=== PATIENT | female | born 1960 | race Caucasian/White ===

== ENCOUNTER 2019-10-01 10:54 | Inpatient (IN) | payer BC ==
[~2019-10-01] VITALS: Ht 157.5 cm; Wt 56.1 kg
--- NOTE | 2019-10-01 11:50 | NUR ---
URINE COLLECTED AND TUBED TO LAB.
[2019-10-01 11:55] LABS: BASOPHILS 0.1 % (0-2); EOSINOPHILS 0.1 % (0-7); HEMATOCRIT 32.8 % (36.0-48.0); HEMOGLOBIN 10.6 g/dL (12-16); IMMATURE GRANULOCYTES 0.8 % (0-5); LYMPHOCYTES 6.5 % (15-50); MCH 30.2 pg (26.0-34.0); MCHC 32.3 g/dL (31.0-37.0); MCV 93.4 fL (80.0-100.0); MEAN PLATELET VOLUME 11.1 fL (7.4-10.4); MONOCYTES 8.3 % (2-11); NEUTROPHILS 84.2 % (40-80); PLATELET COUNT 236 10x3/uL (130-400); RBC 3.51 10x6/uL (4.00-5.40); RDW 15.3 % (11.5-14.5); WBC 14.1 10x3/uL (4.8-10.8)
[2019-10-01 12:05] LABS: APTT 33.4 SECONDS (22.8-39.4); INR 1.15 (0.85-1.17); PROTIME 14.7 SECONDS (11.6-15.0)
[2019-10-01 12:26] LABS: ALBUMIN 2.4 g/dL (3.4-5.0); ALKALINE PHOSPHATASE 195 U/L (30-120); ALT (SGPT) 25 U/L (10-68); AMYLASE - SERUM 23 U/L (25-115); BILIRUBIN - TOTAL 0.52 mg/dL (0.2-1.3); CALC OSMOLALITY 275 mosm/kg (275-300); CARBON DIOXIDE 12.1 mmol/L (21.0-32.0); CHLORIDE - SERUM 105 mmol/L (98-107); CKMB 4.1 U/L (0.0-3.6); CREATINE KINASE 54 UL (21-215); CREATININE - SERUM 2.6 mg/dL (0.6-1.3); FERRITIN 197 ng/mL (3-244); GLUCOSE 120 mg/dL (74-106); LIPASE 84 U/L (73-393); PROTEIN - SERUM 6.9 g/dL (6.4-8.2); SODIUM 135 mmol/L (136-145); UREA NITROGEN 27 mg/dL (7-18); eGFR NON AFRICAN AMERICAN 20 mL/min (90-120)
[2019-10-01 12:30] VITALS: BP 108/62
[2019-10-01 12:34] LABS: POTASSIUM - SERUM 3.1 mmol/L (3.5-5.1)
[2019-10-01 12:35] LABS: TROPONIN-I 0.574 ng/mL (0.000-0.060)
--- NOTE | 2019-10-01 12:37 | NUR ---
CRITICALLAB: MARGARET FOSTER FROM [facility], LAB TROPONIN [phone]
[2019-10-01 12:45] LABS: C-REACTIVE PROTEIN 60.2 mg/dL (0.0-0.9)
[2019-10-01 12:54] LABS: BILIRUBIN NEGATIVE (NEGATIVE); GLUCOSE NEGATIVE (NEGATIVE); KETONE NEGATIVE (NEGATIVE); NITRITE NEGATIVE (NEGATIVE); SPECIFIC GRAVITY 1.015 (1.005-1.020); UROBILINOGEN NORMAL (NORMAL)
[2019-10-01 12:55] LABS: RED CELLS - URINE 0-5 /hpf (0-5)
[2019-10-01 12:56] LABS: BACTERIA FEW /hpf (NEGATIVE); EPITHELIAL CELLS 0-5 /hpf (0-5)
[2019-10-01 13:30] VITALS: BP 113/92
[2019-10-01 15:06] VITALS: BP 147/78
[2019-10-01 16:08] VITALS: BP 124/75
--- NOTE | 2019-10-01 17:08 | NUR ---
PT ARRIVED TO FLOOR VIA WHEELCHAIR. PT ON 2L O2 SOB. VSS AT THIS TIME. NO S/S OF DISTRESS. BED LOW CALL LIGHT WITHIN REACH. WILL CONTINUE TO MONITOR.
[2019-10-01 17:19] LABS: % SATURATION 5 % (15-55); IRON 11 ug/dl (35-150); TOTAL IRON BIND CAPACITY 215 ug/dl (260-445); UNSAT IRON BIND CAPACITY 204 ug/dl (150-375)
[2019-10-01] MEDS ORDERED: BUPROPION HCL100 M1 PO (17:23)
[2019-10-01] MEDS ORDERED: MOBIC7.5 MG PO (17:24)
[2019-10-01] MEDS ORDERED: COZAAR50 MG PO (17:26)
[2019-10-01] MEDS ORDERED: TRAZODONE HCL150 MG PO (17:27)
[2019-10-01] MEDS ORDERED: CRESTOR40 MG PO (17:27)
[2019-10-01] MEDS ORDERED: ULTRAM50 MG PO (17:28)
[2019-10-01] MEDS ORDERED: CYMBALTA30 MG PO (17:29)
[2019-10-01 19:51] LABS: CKMB 11.9 U/L (0.0-3.6); CREATINE KINASE 84 UL (21-215)
[2019-10-01 19:54] LABS: TROPONIN-I 0.354 ng/mL (0.000-0.060)
[2019-10-01 21:24] VITALS: BP 114/60
[2019-10-01 21:25] VITALS: BP 116/60; BMI 21.4
[2019-10-02 00:40] LABS: CKMB 18.5 U/L (0.0-3.6); CREATINE KINASE 110 UL (21-215)
[2019-10-02 00:42] LABS: TROPONIN-I 0.277 ng/mL (0.000-0.060)
[2019-10-02 04:14] LABS: BASOPHILS 0 % (0-2); EOSINOPHILS 0 % (0-7); HEMATOCRIT 30.4 % (36.0-48.0); HEMOGLOBIN 10.1 g/dL (12-16); IMMATURE GRANULOCYTES 0.3 % (0-5); LYMPHOCYTES 5.6 % (15-50); MCH 30.5 pg (26.0-34.0); MCHC 33.2 g/dL (31.0-37.0); MCV 91.8 fL (80.0-100.0); MEAN PLATELET VOLUME 10.6 fL (7.4-10.4); MONOCYTES 6.9 % (2-11); NEUTROPHILS 87.2 % (40-80); PLATELET COUNT 220 10x3/uL (130-400); RBC 3.31 10x6/uL (4.00-5.40); WBC 11.9 10x3/uL (4.8-10.8)
[2019-10-02 04:58] LABS: ALBUMIN 2.3 g/dL (3.4-5.0); ALKALINE PHOSPHATASE 168 U/L (30-120); ALT (SGPT) 26 U/L (10-68); BILIRUBIN - TOTAL 0.37 mg/dL (0.2-1.3); CALCIUM 9.2 mg/dL (8.5-10.1); CHLORIDE - SERUM 108 mmol/L (98-107); CKMB 18.6 U/L (0.0-3.6); CREATINE KINASE 116 UL (21-215); CREATININE - SERUM 2.6 mg/dL (0.6-1.3); GLUCOSE 137 mg/dL (74-106); MAGNESIUM - SERUM 2.1 mg/dL (1.8-2.4); POTASSIUM - SERUM 3.4 mmol/L (3.5-5.1); PROTEIN - SERUM 6.7 g/dL (6.4-8.2); SODIUM 138 mmol/L (136-145); eGFR NON AFRICAN AMERICAN 20 mL/min (90-120)
[2019-10-02 05:18] LABS: CALC OSMOLALITY 287 mosm/kg (275-300); UREA NITROGEN 40 mg/dL (7-18)
[2019-10-02 05:19] LABS: C-REACTIVE PROTEIN 45.7 mg/dL (0.0-0.9); TROPONIN-I 0.259 ng/mL (0.000-0.060)
--- NOTE | 2019-10-02 05:57 | NUR ---
VIET ERNST APN PAGED FOR RESULTS OF BLOOD CULTURES.
--- NOTE | 2019-10-02 06:06 | NUR ---
I have reviewed this patient and I concur with the Shift Assessment completed by the Licensed Practical Nurse today this shift.
--- NOTE | 2019-10-02 07:10 | NUR ---
REPORT RECEIVED FROM OPERATIONS DISPATCHER ANDPATIENT CARE ASSUMED.PATIENT LAYING IN BED ON BACK AWAKE, ALERT AND ORIENTED X 2. PATIENT DENIES ANY NEEDS OR PAIN. PER MEME PLATA TECH, THE RT CHEST LEAD IS NOT WORKING PROPERLY. PLACED NOT STICKER AND REPLACED LEAD. OTHER LEADS WERE NOT IN PLACE AND REPLACED THOSE. WILL CONTINUE WITH PLAN OF CARE. SR UP X 2 BED IN LOW POSITION AND CALL LIGHT IN REACH.
[2019-10-02 09:26] VITALS: BP 148/72
[2019-10-02 12:42] LABS: ERYTHROCYTE SEDIMENTATION RATE 103 mm/hr (0-30)
--- NOTE | 2019-10-02 13:41 | NUR ---
PATIENT IS STABLE AND UNCHANGED. PATIENT DENIES ANY NEEDS OR PAIN. COVID TEST PENDING. AWAITING STOOL AND URINE SPECIMEN. WILL CONTINUE WITH PLAN OF CARE. SR UP X 2 BED IN LOW POSITION AND CALL LIGHT IN REACH.
[2019-10-02 19:14] LABS: BILIRUBIN NEGATIVE (NEGATIVE); GLUCOSE NEGATIVE (NEGATIVE); KETONE NEGATIVE (NEGATIVE); NITRITE NEGATIVE (NEGATIVE); UROBILINOGEN NORMAL (NORMAL)
--- NOTE | 2019-10-02 19:15 | NUR ---
REPORT RECEIVED, WILL CONTINUE POC. PATIENT IS AAOX4, LYING IN SEMI-FOWLERS POSITION. NO S/S OF DISTRESS OBSERVED, RR EVEN AND UNLABORED ON ROOM AIR. PATIENT DENIES NEEDS AT THIS TIME. CL IN REACH, BED LOCKED AND LOWERED. ISOLATION PRECAUTIONS MAINTAINED. WILL CTM.
[2019-10-02 19:18] LABS: PRO/CRE RATIO URINE 2.5 mg/g
[2019-10-02 19:21] LABS: BACTERIA FEW /hpf (NEGATIVE); EPITHELIAL CELLS NSEEN /hpf (0-5); RED CELLS - URINE NONE SEEN /hpf (0-5); WHITE CELLS - URINE 0-5 /hpf (NEGATIVE)
[2019-10-02 21:26] VITALS: BP 154/91
[2019-10-03 03:00] VITALS: BP 139/86
[2019-10-03 05:08] LABS: BASOPHILS 0 % (0-2); EOSINOPHILS 0.1 % (0-7); HEMATOCRIT 29.6 % (36.0-48.0); HEMOGLOBIN 9.7 g/dL (12-16); IMMATURE GRANULOCYTES 0.4 % (0-5); LYMPHOCYTES 8.8 % (15-50); MCH 30.4 pg (26.0-34.0); MCHC 32.8 g/dL (31.0-37.0); MCV 92.8 fL (80.0-100.0); MEAN PLATELET VOLUME 10.3 fL (7.4-10.4); MONOCYTES 12.3 % (2-11); NEUTROPHILS 78.4 % (40-80); PLATELET COUNT 214 10x3/uL (130-400); RBC 3.19 10x6/uL (4.00-5.40); RDW 15.1 % (11.5-14.5); WBC 11.3 10x3/uL (4.8-10.8)
[2019-10-03 05:23] LABS: ALBUMIN 2.1 g/dL (3.4-5.0); ANION GAP 18.9 mmol/L (8-16); BILIRUBIN - TOTAL 0.46 mg/dL (0.2-1.3); CALCIUM 8.2 mg/dL (8.5-10.1); CARBON DIOXIDE 15.4 mmol/L (21.0-32.0); CREATININE - SERUM 2.5 mg/dL (0.6-1.3); MAGNESIUM - SERUM 1.6 mg/dL (1.8-2.4); POTASSIUM - SERUM 3.3 mmol/L (3.5-5.1)
--- NOTE | 2019-10-03 07:10 | NUR ---
REPORT RECEVIED FROM SHEET COMBINING OPERATOR AND PATIENT CARE ASSUMED. PATIENT LAYING IN BED WITH EYES CLOSED AND BREATHING EVENLY. PATIENT AROUSES TO VOICE EASILY. PATIENT IS STABLE AND VSS. PATIENT DENIES ANY NEEDS OR PAIN. WILL CONTINUE WITH PLAN OF CARE. SR UP X 2 BED IN LOW POSITION AND CALL LIGHT IN REACH.
[2019-10-03 10:03] VITALS: BP 139/60
[2019-10-03 11:08] LABS: SPE - A/G RATIO 0.8 (0.7-1.7); SPE - ALBUMIN 2.4 g/dL (2.9-4.4); SPE - ALPHA-1 GLOBULIN 0.5 g/dL (0.0-0.4); SPE - ALPHA-2 GLOBULIN 1.1 g/dL (0.4-1.0); SPE - BETA GLOBULIN 0.9 g/dL (0.7-1.3); SPE - GAMMA GLOBULIN 0.6 g/dL (0.4-1.8); SPE - M-SPIKE Not Observed g/dL (Not Observed); SPE - TOTAL PROTEIN 5.6 g/dL (6.0-8.5)
--- NOTE | 2019-10-03 11:25 | NUR ---
RECEIVED CALL FROM IKTTY WILSON . PATIENT HAS TESTED NEGATIVE FOR COVID. WILL TRANSFER PATIENT OUT OF ISOLATION.
[2019-10-03 18:29] VITALS: BP 148/79
--- NOTE | 2019-10-03 19:45 | NUR ---
REPORT RECIEVED AND INITIAL ROUNDS COMPLETED. PT RESTING IN BED. ALERT/ORIENTED. SR/90 PER TELEMETRY. NONLABORED RESPIRATIONS ON ROOM AIR. IVF INFUSING AT 75ML/HR. PT REQUESTING "NERVE PILL" WHEN SHE GETS HER BEDTIME MEDS. NO OTHER NEEDS VOICED. CPOC. CALL LIGHT IN REACH.
[2019-10-03 21:20] VITALS: BP 136/86
[2019-10-04 01:30] VITALS: BP 141/86
[2019-10-04 04:43] VITALS: BP 141/74
[2019-10-04 05:58] LABS: BASOPHILS 0.2 % (0-2); EOSINOPHILS 0.3 % (0-7); HEMATOCRIT 29.1 % (36.0-48.0); HEMOGLOBIN 9.3 g/dL (12-16); IMMATURE GRANULOCYTES 0.5 % (0-5); LYMPHOCYTES 8.5 % (15-50); MCH 29.9 pg (26.0-34.0); MCV 93.6 fL (80.0-100.0); MEAN PLATELET VOLUME 11.2 fL (7.4-10.4); MONOCYTES 14.5 % (2-11); PLATELET COUNT 235 10x3/uL (130-400); RBC 3.11 10x6/uL (4.00-5.40); RDW 15.2 % (11.5-14.5); WBC 9.9 10x3/uL (4.8-10.8)
[2019-10-04 06:15] LABS: ALBUMIN 2.1 g/dL (3.4-5.0); ANION GAP 15.6 mmol/L (8-16); BILIRUBIN - TOTAL 0.71 mg/dL (0.2-1.3); CALCIUM 8.5 mg/dL (8.5-10.1); CARBON DIOXIDE 21.4 mmol/L (21.0-32.0); CREATININE - SERUM 1.8 mg/dL (0.6-1.3); MAGNESIUM - SERUM 1.8 mg/dL (1.8-2.4); PROTEIN - SERUM 6.2 g/dL (6.4-8.2)
--- NOTE | 2019-10-04 07:15 | NUR ---
RECEIVED PT IN BED EYES CLOSED RESP UNLABORED SKIN W/D COLOR WNL NAD NOTED
[2019-10-04 10:20] VITALS: BP 120/72
[2019-10-04 14:18] VITALS: BP 123/70
[2019-10-04 16:46] VITALS: BP 122/73
[2019-10-04 20:00] VITALS: BP 130/82
--- NOTE | 2019-10-04 20:00 | NUR ---
REPORT RECIEVED AND INITIAL ROUNDS COMPLETED. PT RESTING IN BED. NO DISTRESS. NO NEEDS VOICED. SR PER TELEMETRY. IVF INFUSING TO RFA. NONLABORED RESPIRATIONS ON ROOM AIR. CALL LIGHT IN REACH. CPOC.
[2019-10-05 04:00] VITALS: BP 113/73
--- NOTE | 2019-10-05 04:00 | NUR ---
RESTING, NO DISTRESS. SR PER TELEMETRY. CPOC.
[2019-10-05 06:59] LABS: BASOPHILS 0.2 % (0-2); EOSINOPHILS 1.1 % (0-7); HEMATOCRIT 27.3 % (36.0-48.0); HEMOGLOBIN 8.9 g/dL (12-16); IMMATURE GRANULOCYTES 0.5 % (0-5); LYMPHOCYTES 12.4 % (15-50); MCH 30.8 pg (26.0-34.0); MCHC 32.6 g/dL (31.0-37.0); MCV 94.5 fL (80.0-100.0); MEAN PLATELET VOLUME 10.5 fL (7.4-10.4); NEUTROPHILS 74.8 % (40-80); PLATELET COUNT 287 10x3/uL (130-400); RBC 2.89 10x6/uL (4.00-5.40); RDW 14.7 % (11.5-14.5); WBC 9.5 10x3/uL (4.8-10.8)
[2019-10-05 07:14] LABS: ALBUMIN 2.2 g/dL (3.4-5.0); ANION GAP 13.2 mmol/L (8-16); BILIRUBIN - TOTAL 0.54 mg/dL (0.2-1.3); C-REACTIVE PROTEIN 11.9 mg/dL (0.0-0.9); CALCIUM 8.3 mg/dL (8.5-10.1); CARBON DIOXIDE 26.6 mmol/L (21.0-32.0); CREATININE - SERUM 1.8 mg/dL (0.6-1.3); MAGNESIUM - SERUM 1.7 mg/dL (1.8-2.4); POTASSIUM - SERUM 3.8 mmol/L (3.5-5.1); PROTEIN - SERUM 6.2 g/dL (6.4-8.2)
--- NOTE | 2019-10-05 08:00 | NUR ---
PT IN BATHROOM UPON WALKING IN. STATED SHE WANTED HER BED CHANGED BECAUSE SHE HAD A SMALL AMOUNT OF STOOL ON THE SHEETS. LINENS CHANGED. ALSO STATES SHE IS ANXIOUS AND HAS A HEADACHE. TYLENOL AND ATIVAN RECIEVED. ASSESSMENT COMPLETE. RR EVEN AND UNLABORED ON RA. DENIES FURTHER NEEDS AT THIS TIME. CALL LIGHT WITHIN REACH. WILL CONTINUE TO MONITOR.
[2019-10-05 10:35] VITALS: BP 103/62
[2019-10-05 13:50] VITALS: BP 112/73
--- NOTE | 2019-10-05 14:16 | NUR ---
SPOKE WITH PT FOR APPROX. 20 MINUTES ABOUT PROCEDURE TOMORROW. AFTER TALK PT STATES SHE "FEELS BETTER". NO FURTHER NEEDS AT THIS TIME
--- NOTE | 2019-10-05 16:48 | NUR ---
I have reviewed this patient and I concur with the Shift Assessment completed by the Licensed Practical Nurse today this shift.
[2019-10-05 20:00] VITALS: BP 107/65
--- NOTE | 2019-10-05 21:47 | NUR ---
INITIAL ROUNDS COMPLETED AT 1915 HRS. PT DENIED ANY DISCOMFORT. NO DISTRESS NOTED. ASSESSMENT COMPLETED AT 2000 HRS. SR PER CM HR 90. ALERT AND ORIENTED TO PERSON, PLACE AND TIME. AGUIRRE. IV TO RFA WITH BICARB WITH 20 MEQ KCL INFUSING AT 75CC/HR. IV PATENT. LUNGS WITH SCATTERED RHONCHI TO MID LOBES, DIMINISHED N BASES BILAT. EXPLAINED TO PT NPO AFTER MIDNIGHT EXCEPT MEDS FOR AM BRONCHOSCOPY. PT STATED UNDERSTANDING. PM MEDS GIVEN. PT CURRENTLY WATCHING TV. NO DISTRESS NOTED. SR UP X1, CALL LIGHT WITHIN REACH.
--- NOTE | 2019-10-05 23:35 | NUR ---
PT RESTING WITH EYES CLOSED. RESP EVEN AND REGULAR. SR UP X1, CALL LIGHT WITHIN REACH.
[2019-10-06] VITALS: BP 114/72
--- NOTE | 2019-10-06 01:06 | NUR ---
PT RESTING WITH EYES CLOSED. RESP EVEN AND REGULAR. SR UP X1, CALL LIGHT WITHIN REACH.
[2019-10-06 04:00] VITALS: BP 109/62
--- NOTE | 2019-10-06 04:26 | NUR ---
HIBICLENS BATH DONE. BED LINENS CHANGED. PT TOLERATED ACTIVITY WELL.
--- NOTE | 2019-10-06 04:57 | NUR ---
SHYLA IN XRAY INFORMED OF BRONCH EARLIER IN EVENING. COPY OF ORDERS SENT OT XRAY. MARTIR RT INFORMED OF PROCEDURE. SPOKE WITH CHRISTINE IN OUTPT REGARDING BRONCHOSCOPY IN GI LAB WITH DR LAO AT 1100 HRS.
--- NOTE | 2019-10-06 06:21 | NUR ---
VSS THROUGHOUT NIGHT. SR PER CM. TYLENOL 650MG PO GIVEN FOR TEMP 100. ATIVAN PO GIVEN FOR CO/ ANXIETY. NEEDS MET; WILL CONTINUE TO MONITOR.
[2019-10-06 06:34] LABS: BASOPHILS 0.2 % (0-2); EOSINOPHILS 1.4 % (0-7); HEMATOCRIT 28.4 % (36.0-48.0); IMMATURE GRANULOCYTES 0.7 % (0-5); LYMPHOCYTES 12.6 % (15-50); MCH 30.1 pg (26.0-34.0); MCHC 31.7 g/dL (31.0-37.0); MEAN PLATELET VOLUME 10.2 fL (7.4-10.4); MONOCYTES 9.4 % (2-11); NEUTROPHILS 75.7 % (40-80); RBC 2.99 10x6/uL (4.00-5.40); RDW 14.5 % (11.5-14.5); WBC 10.5 10x3/uL (4.8-10.8)
[2019-10-06 06:47] LABS: ALBUMIN 2.2 g/dL (3.4-5.0); ANION GAP 13.2 mmol/L (8-16); BILIRUBIN - TOTAL 0.48 mg/dL (0.2-1.3); CALCIUM 8.6 mg/dL (8.5-10.1); CARBON DIOXIDE 27.9 mmol/L (21.0-32.0); CREATININE - SERUM 1.7 mg/dL (0.6-1.3); POTASSIUM - SERUM 4.1 mmol/L (3.5-5.1); PROTEIN - SERUM 6.5 g/dL (6.4-8.2)
[2019-10-06 07:03] LABS: PLATELET COUNT 382 10x3/uL (130-400)
--- NOTE | 2019-10-06 07:20 | NUR ---
RECIEVE REPORT. RESTING IN BED WITH EYES CLOSED. NO SIGNS OF DISTRESS. CONTINUE PLAN OF CARE AND SAFETY PRECAUTIONS.
[2019-10-06 08:00] VITALS: BP 100/52
--- NOTE | 2019-10-06 12:23 | NUR ---
ARRIVE BACK TO ROOM FROM BRONCH. ALERT AND ORIENTED X4. HOB ELEVATED. INSTRUCT TO NO EAT OR DRINK ANYTHING FOR NEXT 2 HOURS.
[2019-10-06 14:03] VITALS: BP 106/68
[2019-10-06 14:08] LABS: UPE RAND - ALBUMIN 13.3 % (()); UPE RAND - ALPHA 1 GLOBULIN 6.7 % (()); UPE RAND - ALPHA 2 GLOBULIN 35.6 % (()); UPE RAND - BETA GLOBULIN 25.9 % (()); UPE RAND - GAMMA GLOBULIN 18.5 % (())
[2019-10-06 14:40] VITALS: Ht 157.5 cm; Wt 56.1 kg
[2019-10-06 18:27] VITALS: BP 102/54
[2019-10-06 22:09] VITALS: BP 97/66
[2019-10-07 00:54] VITALS: BP 106/57
--- NOTE | 2019-10-07 03:32 | NUR ---
RESTING WITH EYES CLOSED, RESPERATIONS EVEN, NO S/S DISTRESS NOTED.
[2019-10-07 04:33] LABS: BASOPHILS 0.3 % (0-2); EOSINOPHILS 1.7 % (0-7); HEMATOCRIT 26.4 % (36.0-48.0); HEMOGLOBIN 8.3 g/dL (12-16); IMMATURE GRANULOCYTES 0.6 % (0-5); LYMPHOCYTES 15.8 % (15-50); MCH 30.2 pg (26.0-34.0); MCHC 31.4 g/dL (31.0-37.0); MEAN PLATELET VOLUME 10.4 fL (7.4-10.4); MONOCYTES 10.8 % (2-11); NEUTROPHILS 70.8 % (40-80); PLATELET COUNT 413 10x3/uL (130-400); RBC 2.75 10x6/uL (4.00-5.40); RDW 14.8 % (11.5-14.5); WBC 9.9 10x3/uL (4.8-10.8)
[2019-10-07 04:51] LABS: ANION GAP 10.4 mmol/L (8-16); CALCIUM 8.1 mg/dL (8.5-10.1); CARBON DIOXIDE 28.4 mmol/L (21.0-32.0); CREATININE - SERUM 1.8 mg/dL (0.6-1.3); POTASSIUM - SERUM 3.8 mmol/L (3.5-5.1)
[2019-10-07 05:05] VITALS: BP 127/57
--- NOTE | 2019-10-07 05:38 | NUR ---
URINE SPECIMINE COLLECTED AND TAKEN TO LAB.
[2019-10-07 09:31] VITALS: BP 85/55
--- NOTE | 2019-10-07 10:20 | NUR ---
I have reviewed this patient and I concur with the Shift Assessment completed by the Licensed Practical Nurse today this shift.
[2019-10-07 12:23] VITALS: BP 104/57
--- NOTE | 2019-10-07 13:50 | MORECARE ---
CASE MANAGEMENT DISCHARGE SUMMARY PATIENT: KENZIE TREADWELL UNIT: [id number] ADM DATE: 10/01/19 AGE: 59 : 58 SEX: F ROOM/BED: D.0596 AUTHOR: DARCIE,DOC PHYSICIAN: REFERRING PHYSICIAN: ERICA MONTEJO MD DATE OF SERVICE: 10/07/19 Discharge Plan Patient Name: KENZIE TREADWELL Facility: [facility]:[place] : 1960 Planned Disposition: Home Anticipated Discharge Date: Discharge Date: Expected LOS: Initial Reviewer: [email or web address] Initial Review Date: 10/07/2019 Generated: 10/07/19 2:50 pm Comments DCP- Discharge Planning Updated by [email or web address]: Catherine Andrade on 10/07/19 12:[address] Patient Name: KENZIE TREADWELL Admission Status: ER Accout number: [id number] Admission Date: 10-01-2019 : 1960 Admission Diagnosis:DYSPNEA, UNSPECIFIED Attending: GUSTABO, Current LOS: 6 Anticipated DC Date: Planned Disposition: Home Primary Insurance: [employer] OUT OF STATE Discharge Planning Comments: CM met with patient to complete initial dc planning assessment. CM educated patient on the CM role and verbal consent given by patient to complete assessment. Patient lives at home with her spouse. At discharge patient plans to return and feels this is a safe discharge. CM discussed availability of home health, rehab services, and medical equipment. Patient denied known discharge needs at this time. States her spouse or another family member will transport her home. CM will continue to follow and will assist as needed with dc plans/needs. Dog Races Manager: Catherine Andrade DCPIA - Discharge Planning Initial Assessment Updated by [email or web address]: Catherine Andrade on 10/07/19 1:48 pm * Is the patient Alert and Oriented? Yes * How many steps to enter\exit or inside your home? 07/22/09 * PCP Dr. Patino * Pharmacy [facility] * Preadmission Environment Home with Family * ADLs Independent * Equipment None * List name and contact numbers for known caregivers / representatives who currently or will assist patient after discharge: [facility] - [phone] * Verbal permission to speak to the caregivers and representatives has been obtained from the patient. Yes * Community resources currently utilized None * Additional services required to return to the preadmission environment? No * Can the patient safely return to the preadmission environment? Yes * Has this patient been hospitalized within the prior 30 days at any hospital? No Patient Name: KENZIE TREADWELL Page [phone] at 1350 All edits/amendments must be made on the electronic document DICTATION DATE: 10/07/19 1350 EYELET ROW MARKER: SIA 10/07/19 1350 RPT#: [id number] DC DATE: STATUS: ADM IN [facility] [address] [place] [address] END OF REPORT
[2019-10-07 14:08] LABS: ACID FAST SMEAR Negative (()); AFB SPECIMEN PROCESSING Concentration (())
[2019-10-07 15:04] VITALS: BP 124/76
[2019-10-07 19:52] VITALS: BP 108/48
--- NOTE | 2019-10-07 22:57 | NUR ---
IV TO INNER RIGHT FOREARM SWOLLEN, IV CATH REMOVED, TIP INTACT. RESITED IV TO TOP OF RIGHT FOREARM, 2O GUAGE, FIRST ATTEMPT. PT TOLERATED WELL. BICARB INUSING AT 75 CC/HR.
[2019-10-08] VITALS: BP 121/66
--- NOTE | 2019-10-08 00:52 | NUR ---
I have reviewed this patient and I concur with the Shift Assessment completed by the Licensed Practical Nurse today this shift.
--- NOTE | 2019-10-08 03:54 | NUR ---
RESTING WITH EYES CLOSED, RESPERATIONS EVEN, NO S/S DISTRESS NOTED.
[2019-10-08 04:00] VITALS: BP 119/58
[2019-10-08 05:47] LABS: BASOPHILS 0.2 % (0-2); EOSINOPHILS 1.3 % (0-7); HEMATOCRIT 28.1 % (36.0-48.0); HEMOGLOBIN 8.8 g/dL (12-16); IMMATURE GRANULOCYTES 0.4 % (0-5); LYMPHOCYTES 15.3 % (15-50); MCHC 31.3 g/dL (31.0-37.0); MCV 95.9 fL (80.0-100.0); MEAN PLATELET VOLUME 10.1 fL (7.4-10.4); MONOCYTES 8.2 % (2-11); NEUTROPHILS 74.6 % (40-80); PLATELET COUNT 484 10x3/uL (130-400); RBC 2.93 10x6/uL (4.00-5.40); RDW 14.5 % (11.5-14.5); WBC 10.6 10x3/uL (4.8-10.8)
[2019-10-08 06:04] LABS: ANION GAP 12.6 mmol/L (8-16); CALCIUM 8.5 mg/dL (8.5-10.1); CARBON DIOXIDE 27.2 mmol/L (21.0-32.0); CREATININE - SERUM 1.4 mg/dL (0.6-1.3); POTASSIUM - SERUM 3.8 mmol/L (3.5-5.1)
--- NOTE | 2019-10-08 07:17 | NUR ---
REPORT RECEIVED FROM SQL SSIS DEVELOPER AND PATIENT CARE ASSUMED. PATIENT SITTING IN IN BED AWAKE, ALERT AND ORIENTED X 4. PATIENT DENIES ANY NEEDS OR PAIN. WILL CONTINUE WITH PLAN OF CARE. SR UP X 2 BED IN LOW POSITION AND CALL LIGHT IN REACH.
[2019-10-08 09:11] VITALS: BP 116/67
--- NOTE | 2019-10-08 10:15 | NUR ---
PATIENT IS STABLE AND VSS. PATIENT DENIES ANY NEEDS OR PAIN. WILL CONTINUE WITH PLAN OF CARE. SR UP X 2 BED IN LOW POSITION AND CALL LIGHT IN REACH.
--- NOTE | 2019-10-08 10:32 | NUR ---
Nutrition Follow-up: Pt reports not eating breakfast this AM. Denies N/V/C/D. Offered nutrition supplements but declined. Diet: Cardiac Wt: 123.4# (10/06); 117.9# (10/05) Last BM: 10/07 per pt Labs reviewed Meds noted: Protonix -Encourage PO intake and honor food preferences within diet restrictions. -Monitor wt. -RD following.
--- NOTE | 2019-10-08 15:29 | NUR ---
PATIENT IS STABLE AND UNCHANGED. PATIENT DENIES ANY NEEDS OR PAIN. WILL CONTINUE WITH PLAN OF CARE. SR UP X 2 BED IN LOW POSITION AND CALL LIGHT IN REACH,.
[2019-10-08 17:12] VITALS: BP 107/56
--- NOTE | 2019-10-08 19:20 | NUR ---
REPORT RECIEVED AND ROUNDING COMPLETE. PATIENT LAYING IN BED IN HIGH FOWLERS. PATIENT WEARING NASAL CANNULA WITH O2 AT 2L. PATIENT HAS A RIGHT FOREARM PIV THAT IS SALINE LOCKED AT THIS TIME. PATIENT STATES SHE HAS NO NEEDS AT THIS TIME. NO S/SX OF DISTRESS AT THIS TIME. CALL LIGHT WITHIN REACH AND BED IN LOWEST LOCKED POSITION.
[2019-10-08 20:00] VITALS: BP 104/63
[2019-10-08 23:44] VITALS: BP 114/65
[2019-10-09 04:00] VITALS: BP 103/53
[2019-10-09 06:21] LABS: ANION GAP 15.6 mmol/L (8-16); CALCIUM 8.8 mg/dL (8.5-10.1); CARBON DIOXIDE 24.2 mmol/L (21.0-32.0); CREATININE - SERUM 1.5 mg/dL (0.6-1.3)
[2019-10-09 06:33] LABS: BASOPHILS 0.3 % (0-2); EOSINOPHILS 0.8 % (0-7); HEMATOCRIT 28.8 % (36.0-48.0); HEMOGLOBIN 9.2 g/dL (12-16); IMMATURE GRANULOCYTES 0.4 % (0-5); LYMPHOCYTES 13.8 % (15-50); MCH 30.7 pg (26.0-34.0); MCHC 31.9 g/dL (31.0-37.0); MEAN PLATELET VOLUME 10.4 fL (7.4-10.4); MONOCYTES 7.6 % (2-11); NEUTROPHILS 77.1 % (40-80); PLATELET COUNT 553 10x3/uL (130-400); RDW 14.6 % (11.5-14.5); WBC 11.1 10x3/uL (4.8-10.8)
[2019-10-09 06:43] LABS: POTASSIUM - SERUM 4.8 mmol/L (3.5-5.1)
[2019-10-09 08:45] VITALS: BP 98/55
[2019-10-09 14:15] VITALS: BP 103/62
[2019-10-09 18:16] VITALS: BP 116/69
[2019-10-09 20:00] VITALS: BP 100/50
[2019-10-10] VITALS: BP 108/59
--- NOTE | 2019-10-10 02:57 | NUR ---
I have reviewed this patient and I concur with the Shift Assessment completed by the Licensed Practical Nurse today this shift.
--- NOTE | 2019-10-10 02:58 | NUR ---
I have reviewed this patient and I concur with the Shift Assessment completed by the Licensed Practical Nurse today this shift.
[2019-10-10 04:00] VITALS: BP 110/50
--- NOTE | 2019-10-10 04:15 | NUR ---
RESTING WITH EYES CLOSED, RESPERATIONS EVEN, NO S/S DISTRESS NOTED.
[2019-10-10 06:16] LABS: BASOPHILS 0.4 % (0-2); EOSINOPHILS 0.9 % (0-7); HEMATOCRIT 29.2 % (36.0-48.0); HEMOGLOBIN 9.2 g/dL (12-16); IMMATURE GRANULOCYTES 0.6 % (0-5); LYMPHOCYTES 15.8 % (15-50); MCH 30.5 pg (26.0-34.0); MCHC 31.5 g/dL (31.0-37.0); MCV 96.7 fL (80.0-100.0); MEAN PLATELET VOLUME 10.3 fL (7.4-10.4); MONOCYTES 10.2 % (2-11); NEUTROPHILS 72.1 % (40-80); PLATELET COUNT 601 10x3/uL (130-400); RBC 3.02 10x6/uL (4.00-5.40); RDW 14.7 % (11.5-14.5); WBC 10.5 10x3/uL (4.8-10.8)
[2019-10-10 06:21] LABS: ANION GAP 15.3 mmol/L (8-16); CALCIUM 8.7 mg/dL (8.5-10.1); CARBON DIOXIDE 23.6 mmol/L (21.0-32.0); CREATININE - SERUM 1.7 mg/dL (0.6-1.3); POTASSIUM - SERUM 4.9 mmol/L (3.5-5.1)
--- NOTE | 2019-10-10 07:35 | NUR ---
REPORT RECEIVED FROM CORPORATE QUALITY ASSURANCE MANAGER AND PATIENT CARE ASSUMED. PATIENT LAYING IN BED ON BACK WITH EYES CLOSED AND BREATHING EVENLY. WILL CONTINUE WITH PLAN OF CARE. SR UP X 2 BED IN LOW POSITION AND CALL LIGHT IN REACH.
[2019-10-10 08:36] VITALS: BP 127/65
[2019-10-10] MEDS ORDERED: PULMICORT0.5 MG/21 UPD (09:26)
[2019-10-10] MEDS ORDERED: OMNICEF300 MG PO (09:26)
[2019-10-10] MEDS ORDERED: PROTONIX40 MG PO (09:27)
--- NOTE | 2019-10-10 10:29 | MORECARE ---
CASE MANAGEMENT DISCHARGE SUMMARY PATIENT: KENZIE TREADWELL UNIT: [id number] ADM DATE: 10/01/19 AGE: 59 : 58 SEX: F ROOM/BED: D.9376 AUTHOR: ADDIE SPRAGUE PHYSICIAN: REFERRING PHYSICIAN: ERICA MONTEJO MD DATE OF SERVICE: 10/10/19 Discharge Plan Patient Name: KENZIE TREADWELL Facility: [facility]:[place] : 1960 Planned Disposition: Home Anticipated Discharge Date: Discharge Date: Expected LOS: Initial Reviewer: [email or web address] Initial Review Date: 10/07/2019 Generated: 10/10/19 11:28 am Comments DCP- Discharge Planning Updated by [email or web address]: Catherine Andrade on 10/10/19 9:[address] Patient Name: KENZIE TREADWELL Encounter No: [id number] : 1960 Primary Insurance: [employer] OUT OF STATE Anticipated DC Date: Planned Disposition: Home External Planned Provider: : DCP follow-up note: Patient in agreement with discharge plan. No changes to plan. Case management will follow and assist as needed. Catherine Andrade DCP- Discharge Planning Updated by [email or web address]: Catherine Andrade on 10/07/19 12:[address] Patient Name: KENZIE TREADWELL Admission Status: ER Accout number: [id number] Admission Date: 10-01-2019 : 1960 Admission Diagnosis:DYSPNEA, UNSPECIFIED Attending: GUSTABO, Current LOS: 6 Anticipated DC Date: Planned Disposition: Home Primary Insurance: [employer]UE [employer] OUT OF STATE Discharge Planning Comments: CM met with patient to complete initial dc planning assessment. CM educated patient on the CM role and verbal consent given by patient to complete assessment. Patient lives at home with her spouse. At discharge patient plans to return and feels this is a safe discharge. CM discussed availability of home health, rehab services, and medical equipment. Patient denied known discharge needs at this time. States her spouse or another family member will transport her home. CM will continue to follow and will assist as needed with dc plans/needs. Glassware Defect Repairer: Catherine Andrade DCPIA - Discharge Planning Initial Assessment Updated by [email or web address]: Catherine Andrade on 10/07/19 1:48 pm * Is the patient Alert and Oriented? Yes * How many steps to enter\exit or inside your home? 07/22/09 * PCP Dr. Patino * Pharmacy [facility] [place] * Preadmission Environment Home with Family * ADLs Independent * Equipment None * List name and contact numbers for known caregivers / representatives who currently or will assist patient after discharge: [facility] - [phone] * Verbal permission to speak to the caregivers and representatives has been obtained from the patient. Yes * Community resources currently utilized None * Additional services required to return to the preadmission environment? No * Can the patient safely return to the preadmission environment? Yes * Has this patient been hospitalized within the prior 30 days at any hospital? No Coverage Notice Reviewer: [email or web address] Emerita Andrade Notice Issued Date-Time: 10/10/2019 10:23 Notice Type: IM Discharge Notice Notice Delivered To: Patient Relationship to Patient: Self Head Of Human Resources Name: Delivery Method: HAND - Hand Delivered Katheryn Days: Prior Verbal Notification: Recipient Understood Notice: Yes Recipient Signature: Yes Med Rec Note Co-signed by Attending: Coverage Notice Comment: IMM explained, signed, given, copy placed in Mr Last DP export: 10/07/19 12:50 p Patient Name: KENZIE TREADWELL Page [id number] at 1029 All edits/amendments must be made on the electronic document DICTATION DATE: 10/10/19 1028 SANDING MACHINE TENDER: SIA 10/10/19 1028 RPT#: [id number] DC DATE: STATUS: ADM IN [facility] [address] [place] [address] END OF REPORT
--- NOTE | 2019-10-12 16:08 | MORECARE ---
CASE MANAGEMENT DISCHARGE SUMMARY PATIENT: KENZIE TREADWELL UNIT: [id number] ADM DATE: 10/01/19 AGE: 59 : 58 SEX: F ROOM/BED: D.9306 AUTHOR: ADDIE SPRAGUE PHYSICIAN: REFERRING PHYSICIAN: ERICA MONTEJO MD DATE OF SERVICE: 10/12/19 Discharge Plan Patient Name: KENZIE TREADWELL Facility: [facility]:[place] : 1960 Planned Disposition: Home Anticipated Discharge Date: Discharge Date: 10/10/2019 Expected LOS: 0 Initial Reviewer: [email or web address] Initial Review Date: 10/07/2019 Generated: 10/12/19 5:08 pm Comments DCP- Discharge Planning Updated by [email or web address]: Catherine Andrade on 10/10/19 9:[address] Patient Name: KENZIE TREADWELL Encounter No: [id number] : 1960 Primary Insurance: BLUE [employer] OUT OF STATE Anticipated DC Date: Planned Disposition: Home External Planned Provider: : DCP follow-up note: Patient in agreement with discharge plan. No changes to plan. Case management will follow and assist as needed. Catherine Andrade DCP- Discharge Planning Updated by [email or web address]: Catherine Andrade on 10/07/19 12:[address] Patient Name: KENZIE TREADWELL Admission Status: ER Accout number: [id number] Admission Date: 10-01-2019 : 1960 Admission Diagnosis:DYSPNEA, UNSPECIFIED Attending: GUSTABO, Current LOS: 6 Anticipated DC Date: Planned Disposition: Home Primary Insurance: [employer] OUT OF STATE Discharge Planning Comments: CM met with patient to complete initial dc planning assessment. CM educated patient on the CM role and verbal consent given by patient to complete assessment. Patient lives at home with her spouse. At discharge patient plans to return and feels this is a safe discharge. CM discussed availability of home health, rehab services, and medical equipment. Patient denied known discharge needs at this time. States her spouse or another family member will transport her home. CM will continue to follow and will assist as needed with dc plans/needs. Human Intelligence: Catherine Andrade DCPIA - Discharge Planning Initial Assessment Updated by [email or web address]: Catherine Andrade on 10/07/19 1:48 pm * Is the patient Alert and Oriented? Yes * How many steps to enter\exit or inside your home? 07/22/09 * PCP Dr. Patino * Pharmacy [facility] on [place] * Preadmission Environment Home with Family * ADLs Independent * Equipment None * List name and contact numbers for known caregivers / representatives who currently or will assist patient after discharge: [facility] - [phone] * Verbal permission to speak to the caregivers and representatives has been obtained from the patient. Yes * Community resources currently utilized None * Additional services required to return to the preadmission environment? No * Can the patient safely return to the preadmission environment? Yes * Has this patient been hospitalized within the prior 30 days at any hospital? No Coverage Notice Reviewer: [id number] - Catherine Andrade Notice Issued Date-Time: 10/10/2019 10:23 Notice Type: IM Discharge Notice Notice Delivered To: Patient Relationship to Patient: Self Music Typographer Name: Delivery Method: HAND - Hand Delivered Katheryn Days: Prior Verbal Notification: Recipient Understood Notice: Yes Recipient Signature: Yes Med Rec Note Co-signed by Attending: Coverage Notice Comment: IMM explained, signed, given, copy placed in Mr Last DP export: 10/10/19 9:29 a Patient Name: KENZIE TREADWELL Page 24046 at 1608 All edits/amendments must be made on the electronic document DICTATION DATE: 10/12/191607 DIRECTOR PHONE: SIA 10/12/19 1608 RPT#: [id number] DC DATE:10/10/19 STATUS: DIS IN [facility] [address] [place] [address] END OF REPORT
== END 2019-10-10 13:29 | disposition home or self-care (01) | DRG 853 ==
LOC: D.ER 10:54 → D.M2 13:42
PROVIDERS: Family Medicine; Internal Medicine Nephrology; Internal Medicine Pulmonary Disease; ADMIT Family Medicine; ATTEND Family Medicine
PROC: 0B9J8ZX Drainage of Left Lower Lung Lobe, Via Natural or Artificial Opening Endoscopic, Diagnostic (ICD-10-PCS; 2019-10-06)
PROC: 0BBJ8ZX Excision of Left Lower Lung Lobe, Via Natural or Artificial Opening Endoscopic, Diagnostic (ICD-10-PCS; principal; 2019-10-06 11:00)
DX: A41.9 Sepsis, unspecified organism (principal); J18.9 Pneumonia, unspecified organism; J96.21 Acute and chronic respiratory failure with hypoxia; J44.0 Chronic obstructive pulmonary disease with (acute) lower respiratory infection; N17.9 Acute kidney failure, unspecified; I31.3 Pericardial effusion (noninflammatory); F17.203 Nicotine dependence unspecified, with withdrawal; E87.1 Hypo-osmolality and hyponatremia; I10 Essential (primary) hypertension; E78.5 Hyperlipidemia, unspecified; F41.8 Other specified anxiety disorders; E86.0 Dehydration; E87.6 Hypokalemia; A49.8 Other bacterial infections of unspecified site